=== PATIENT | male | born 1955 | race Caucasian/White ===

== ENCOUNTER 2020-10-10 15:38 | Emergency (ER) | payer MEDICAID ==
[~2020-10-10] VITALS: Ht 172.7 cm; Wt 82.6 kg
--- NOTE | 2020-10-10 16:05 | NUR ---
SPOKE WITH WALLY AT [phone], AND IS A RESIDENT AT [address] [place] [address] AND THEY WILL PICK HIM UP, DR RIVER INFORMED
--- NOTE | 2020-10-10 16:15 | NUR ---
BIB [address],C/O BACK PAIN (RATES 3/10) WHERE AN ABSCESS WAS FOUND,EMS DINESH- PECTS THAT HE IS A MISSING PERSON IN [place],HE DOESN'T KNOW HOW HE GOT. DENIES SOB. RESPIRATION REGULAR AND UNLABORED. WILL CONTINUE TO MONITOR THE PATIENT.
--- NOTE | 2020-10-10 16:55 | NUR ---
[facility] - [phone].
[2020-10-10 17:00] LABS: BASOPHILS % (AUTO) 0.3 % (0.0-2.0); HEMATOCRIT 37 % (39-51); LYMPHOCYTES # (AUTO) 0.7 K/uL (0.8-4.8); LYMPHOCYTES % (AUTO) 7.4 % (20.0-44.0); MEAN CORPUSCULAR HGB CONC 33 g/dl (31.0-36.0); MEAN CORPUSCULAR VOLUME 88 fL (80-96); MONOCYTES # (AUTO) 0.5 K/uL (0.1-1.30); MONOCYTES % (AUTO) 5.4 % (2.0-12.0); NEUTROPHILS # (AUTO) 8.2 K/uL (1.8-8.9); NEUTROPHILS % (AUTO) 86.9 % (43.0-81.0); PLATELET COUNT (AUTO) 265 K/uL (150-450); RED BLOOD CELL COUNT(AUTO) 4.22 MIL/uL (4.5-6.0); WHITE BLOOD COUNT (AUTO) 9.5 K/uL (4.3-11.0)
[2020-10-10 17:11] LABS: CALCIUM, SERUM 9.2 mg/dL (8.5-10.1); CARBON DIOXIDE 25 mmol/L (21-32); CHLORIDE 104 mmol/L (98-107); CREATININE 1.4 mg/dL (0.6-1.3); GLUCOSE 84 mg/dL (74-106); POTASSIUM 3.9 mmol/L (3.5-5.1); SODIUM SERUM 142 mmol/L (136-145); UREA NITROGEN, BLOOD 25 mg/dL (7-18)
[2020-10-10 17:27] LABS: ALANINE AMINOTRANSFERASE 23 U/L (12-78); ALBUMIN 3.8 g/dL (3.4-5.0); ALKALINE PHOSPHATASE 68 U/L (46-116); ASPARTATE AMINOTRANSFERASE 41 U/L (15-37); BILIRUBIN,DIRECT 0.2 mg/dL (0.0-0.2); BILIRUBIN,TOTAL 0.8 mg/dL (0.2-1.0); LIPASE 57 U/L (73-393); TOTAL PROTEIN, SERUM 7.4 g/dL (6.4-8.2)
--- NOTE | 2020-10-10 18:25 | NUR ---
GAVE REPORT TO BAN AT [facility], PATIENT WILL GO TO ROOM 4B LOCKED BUILDING.
--- NOTE | 2020-10-10 18:30 | NUR ---
CALLED AND SPOKE TO BAN FROM [facility]. PT IS A RESIDENT AT FACILITY AND WILL BE GOING BACK. [id number] [facility], [place] [address]
--- NOTE | 2020-10-10 18:38 | NUR ---
CALLED [facility] FOR TRANSPORT TO [facility]. ETA 2 TO 2 AND 1/2 HOURS.
--- NOTE | 2020-10-10 20:44 | NUR ---
gave report to ems
[2020-10-10 20:48] VITALS: BP 116/72
== END 2020-10-10 20:45 ==
LOC: ER 15:43
DX: F99 Mental disorder, not otherwise specified (principal); F20.9 Schizophrenia, unspecified; R40.4 Transient alteration of awareness
CPT/HCPCS: 70450-TC; 71045-TC; 80048-TC; 80076-TC; 82962-TC; 83690-TC; 84484-TC; 85025-TC; 85730-TC